=== PATIENT | male | born 1990 | race Caucasian/White ===

== ENCOUNTER 2020-02-19 23:07 | Emergency (ER) | payer SELFPAY ==
[~2020-02-19] VITALS: Ht 180.3 cm; Wt 103.8 kg
[~2020-02-19 23:07] MED LIST: ACET325T14 PO; GABA300C10 PO; IBUP-1623 PO; INTE44DI SQ; OXYC-306 PO
[2020-02-19 23:10] VITALS: BP 123/85
--- NOTE | 2020-02-19 23:28 | NUR ---
THIS IS A 29Y M THAT COMES IN FOR SUDDEN ONSET SHARP LEFT SIDED ABD PAIN. PT WAS SEEN THIS AM FOR SORE THROAT AND COUGH. PT TESTED POSITIVE FOR STREP AND HAS PENDING COVID TEST. PT REPORTS TAKING TWO DOSES OF HIS AMOXICILLIN PT REPORTS FAMILY HX OF PCN ALLERGY BUT NOT FOR HIMSELF. PT DOES MENTION HE HAS NEVER TAKEN AMOX. PT CONNECTED TO MONITORING VSS, PT DOES REPORT SEVERE ABD PAIN AND IS MOANING ON GURNEY.
[2020-02-20 00:30] LABS: BASOPHILS % (AUTO) 1 % (0-1); EOSINOPHILS % (AUTO) 1 % (1-7); LYMPHOCYTES % (AUTO) 17 % (22-44); MEAN CORPUSCULAR HEMOGLOBIN 30.8 pg (27.5-34.5); MEAN CORPUSCULAR HGB CONC 34.8 g/dL (33.2-36.2); MEAN PLATELET VOLUME 9.2 fL (7.4-10.4); MONOCYTES % (AUTO) 12 % (2-9); NEUTROPHILS % (AUTO) 70 % (42-75); PLATELET COUNT 164 x10^3/uL (130-400); RED BLOOD COUNT 5.09 x10^6/uL (4.38-5.82); RED CELL DISTRIBUTION WIDTH 12.6 % (9.4-14.8)
[2020-02-20 00:33] LABS: ALANINE AMINOTRANSFERASE 32 U/L (12-78); ALBUMIN 3.7 g/dL (3.4-5.0); ANION GAP 5 mmol/L (5-15); CALCIUM 8.5 mg/dL (8.5-10.1); CHLORIDE 107 mmol/L (98-107); CREATININE 1.01 mg/dL (0.7-1.3)
[2020-02-20 00:36] LABS: ALKALINE PHOSPHATASE 47 U/L (45-117); BILIRUBIN,TOTAL 0.4 mg/dL (0.2-1.0); TOTAL PROTEIN 6.8 g/dL (6.4-8.2)
[2020-02-20 00:39] LABS: MD NO
--- NOTE | 2020-02-20 01:49 | NUR ---
Patient/Caregiver given discharge instructions and they have confirmed that they understand the instructions. Patient ambulatory with steady gait.
== END 2020-02-20 01:50 | disposition home or self-care (01) ==
LOC: ED 02-20 00:59
DX: R10.12 Left upper quadrant pain (principal); R10.13 Epigastric pain; G35 Multiple sclerosis; Z90.49 Acquired absence of other specified parts of digestive tract
CPT/HCPCS: 36415; 80053; 80320; 83690; 85025; 99283; G0480